=== PATIENT | female | born 1985 | race Caucasian/White ===

== ENCOUNTER 2021-10-01 10:41 | Inpatient (IN) | payer OTHER ==
[~2021-10-01] VITALS: Ht 167.6 cm; Wt 129.5 kg
[2021-10-01 11:20] LABS: COVID AG,FIA SOURCE NASOPHARYNGEAL
[2021-10-01 11:21] LABS: BASOPHILS % (AUTO) 0.3 % (0.0-2.0); EOSINOPHILS % (AUTO) 0 % (1.0-6.0); HEMATOCRIT 39.8 % (36-46); HEMOGLOBIN 13.1 g/dL (12.0-16.0); LYMPHOCYTES # (AUTO) 2.9 K/uL (1.0-4.8); LYMPHOCYTES % (AUTO) 26.7 % (22.0-44.0); MEAN CORPUSCULAR HEMOGLOBIN 27.8 pg (26.0-34.0); MEAN CORPUSCULAR HGB CONC 32.9 G/dL (31.0-37.0); MEAN CORPUSCULAR VOLUME 84 fL (80-100); MONOCYTES # (AUTO) 0.2 K/uL (0.1-1.0); MONOCYTES % (AUTO) 2.2 % (2.0-9.0); NEUTROPHILS # (AUTO) 7.6 K/uL (1.8-7.7); NEUTROPHILS % (AUTO) 70.8 % (40.0-70.0); PLATELET COUNT (AUTO) 267 K/uL (150-450); RED BLOOD CELL COUNT(AUTO) 4.72 MIL/uL (4.00-5.20); RED CELL DISTRIBUTION WIDTH 16.7 % (11.5-14.5)
[2021-10-01 11:37] LABS: ANION GAP 14 mmol/L (8-16); CALCIUM, TOTAL 7.9 mg/dL (8.8-10.5); CARBON DIOXIDE 25 mmol/L (22-29); CHLORIDE 108 mmol/L (98-107); CREATININE 0.63 mg/dL (0.60-1.30); GLOMERULAR FILTR. RATE CALC > 60 mL/min (>60); GLUCOSE,RANDOM 86 mg/dL (70-110); POTASSIUM 3.1 mmol/L (3.5-5.1); SODIUM SERUM 147 mmol/L (136-145); UREA NITROGEN, BLOOD 9 mg/dL (7-18)
[2021-10-01 11:56] LABS: GLUCOMETER DEV NAME(LOC) ERT.5; GLUCOSE,POINT OF CARE 80 MG/DL (70-110)
[2021-10-01 12:00] LABS: ALANINE AMINOTRANSFERASE 21 U/L (12-78); ALBUMIN 3.4 g/dL (3.4-5.0); ALKALINE PHOSPHATASE 88 U/L (46-116); ASPARTATE AMINOTRANSFERASE 27 U/L (15-37); BILIRUBIN,TOTAL 0.4 mg/dL (0.1-1.0); HCG,QUANTITATIVE < 1 mIU/mL (0-6); TOTAL PROTEIN, SERUM 7.8 g/dL (6.4-8.2)
[2021-10-01 12:22] LABS: AMPHET/METH SCREEN,URINE NEGATIVE (NEGATIVE); BARBITURATE SCREEN, URINE NEGATIVE (NEGATIVE); BENZODIAZEPINES SCREEN,URINE NEGATIVE (NEGATIVE); CANNABINOID SCREEN,URINE NEGATIVE (NEGATIVE); COCAINE SCREEN,URINE NEGATIVE (NEGATIVE); METHADONE SCREEN, URINE NEGATIVE (NEGATIVE); OPIATE SCREEN,URINE NEGATIVE (NEGATIVE)
[2021-10-01 12:24] LABS: PHENCYCLIDINE SCREEN,URINE NEGATIVE (NEGATIVE)
[2021-10-01] MEDS ORDERED: POTASSIUM CHLORIDE 20 MEQ ER TABLET PO ONE (13:45)
[2021-10-01] MEDS ORDERED: MAGNESIUM HYDROXIDE SUSPENSION 30 ML UDCUP PO PRN (14:45)
[2021-10-01] MEDS ORDERED: BISACODYL 10 MG RECTAL RECTAL SUPPOSITORY PR PRN (14:45)
[2021-10-01] MEDS ORDERED: MORPHINE SULFATE 2 MG/ML SYRINGE IVP PRN (14:45)
[2021-10-01] MEDS ORDERED: LORazepam 2 MG/ML VIAL IVP PRN (14:45)
[2021-10-01] MEDS ORDERED: HYDROCODONE/ACETAMINOPHEN 5-325 MG TABLET PO PRN (14:45)
[2021-10-01] MEDS ORDERED: MAGNESIUM SULFATE 2 GM, MVI, ADULT NO.1 WITH VIT K 10 ML, THIAMINE 100 MG, FOLIC ACID 1... IV ONE ×5 (14:45)
[2021-10-01] MEDS: HEPARIN SODIUM,PORCINE 5,000 UNITS/ML VIAL SQ SCH (15:40)
[2021-10-01 20:15] VITALS: BP 123/67
[2021-10-01] MEDS: DOCUSATE SODIUM 100 MG CAPSULE PO SCH (20:18)
[2021-10-01 23:45] VITALS: BP 133/62
[2021-10-02] MEDS: HEPARIN SODIUM,PORCINE 5,000 UNITS/ML VIAL SQ SCH ×4 (00:57→23:42)
[2021-10-02] MEDS: ONDANSETRON HCL 4 MG/2 ML VIAL IVP PRN ×2 (00:57→05:54)
[2021-10-02 03:30] VITALS: BP 133/95
[2021-10-02] MEDS: ACETAMINOPHEN 325 MG TABLET PO PRN (05:53)
[2021-10-02 06:32] LABS: BASOPHILS % (AUTO) 0.3 % (0.0-2.0); EOSINOPHILS % (AUTO) 0.1 % (1.0-6.0); HEMATOCRIT 35.4 % (36-46); HEMOGLOBIN 11.9 g/dL (12.0-16.0); LYMPHOCYTES # (AUTO) 0.7 K/uL (1.0-4.8); LYMPHOCYTES % (AUTO) 7.9 % (22.0-44.0); MEAN CORPUSCULAR HGB CONC 33.7 G/dL (31.0-37.0); MEAN CORPUSCULAR VOLUME 83 fL (80-100); MONOCYTES # (AUTO) 0.2 K/uL (0.1-1.0); MONOCYTES % (AUTO) 2.1 % (2.0-9.0); NEUTROPHILS # (AUTO) 7.9 K/uL (1.8-7.7); PLATELET COUNT (AUTO) 203 K/uL (150-450); RED BLOOD CELL COUNT(AUTO) 4.25 MIL/uL (4.00-5.20); RED CELL DISTRIBUTION WIDTH 16.8 % (11.5-14.5)
[2021-10-02 06:33] LABS: NEUTROPHILS % (AUTO) 89.6 % (40.0-70.0)
[2021-10-02 06:42] LABS: ANION GAP 12 mmol/L (8-16); CALCIUM, TOTAL 8.1 mg/dL (8.8-10.5); CARBON DIOXIDE 26 mmol/L (22-29); CHLORIDE 102 mmol/L (98-107); CREATININE 0.51 mg/dL (0.60-1.30); GLUCOSE,RANDOM 105 mg/dL (70-110); POTASSIUM 3.5 mmol/L (3.5-5.1); SODIUM SERUM 140 mmol/L (136-145); UREA NITROGEN, BLOOD 4 mg/dL (7-18)
[2021-10-02 06:45] LABS: GLOMERULAR FILTR. RATE CALC > 60 mL/min (>60)
[2021-10-02 07:23] VITALS: BP 128/84
[2021-10-02] MEDS: DOCUSATE SODIUM 100 MG CAPSULE PO SCH ×2 (09:15→21:00)
[2021-10-02] MEDS: PANTOPRAZOLE SODIUM 40 MG DR TABLET PO SCH (09:15)
[2021-10-02] MEDS ORDERED: PROZ20 PO (12:18)
[2021-10-02] MEDS ORDERED: LEVE500T8 PO (12:18)
[2021-10-02] MEDS ORDERED: CHLO5CAP4 PO (12:18)
[2021-10-02 15:03] VITALS: BP 124/78
[2021-10-02] MEDS: ACAMPROSATE CALCIUM 333 MG DR TABLET PO SCH ×2 (16:53→21:07)
[2021-10-02 20:21] VITALS: BP 141/59
[2021-10-02] MEDS: LevETIRAcetam 500 MG TABLET PO SCH (21:07)
[2021-10-02] MEDS: FLUoxetine HCL 20 MG CAPSULE PO SCH (21:07)
[2021-10-02] MEDS: MELATONIN 5 MG TABLET PO SCH (21:07)
[2021-10-03 04:48] VITALS: BP 135/80
[2021-10-03 07:31] VITALS: BP 119/72
[2021-10-03] MEDS: HEPARIN SODIUM,PORCINE 5,000 UNITS/ML VIAL SQ SCH ×3 (09:51→23:04)
[2021-10-03] MEDS: OMEGA-3/DHA/EPA/FISH OIL 1,000 MG CAPSULE PO SCH (09:54)
[2021-10-03] MEDS: FLUoxetine HCL 20 MG CAPSULE PO SCH ×2 (09:54→20:07)
[2021-10-03] MEDS: LevETIRAcetam 500 MG TABLET PO SCH ×2 (09:55→20:07)
[2021-10-03] MEDS: ACAMPROSATE CALCIUM 333 MG DR TABLET PO SCH ×3 (09:55→20:07)
[2021-10-03] MEDS: PANTOPRAZOLE SODIUM 40 MG DR TABLET PO SCH (09:55)
[2021-10-03] MEDS: DOCUSATE SODIUM 100 MG CAPSULE PO SCH ×2 (09:55→20:07)
[2021-10-03 15:05] VITALS: BP 124/82
[2021-10-03 19:22] VITALS: BP 123/76
[2021-10-03] MEDS: MELATONIN 5 MG TABLET PO SCH (21:16)
[2021-10-03] MEDS: ZOLPIDEM TARTRATE 5 MG TABLET PO PRN (23:02)
[2021-10-04 05:28] VITALS: BP 120/67
[2021-10-04 07:22] VITALS: BP 124/68
[2021-10-04] MEDS: ACAMPROSATE CALCIUM 333 MG DR TABLET PO SCH ×3 (08:14→21:00)
[2021-10-04] MEDS: HEPARIN SODIUM,PORCINE 5,000 UNITS/ML VIAL SQ SCH ×3 (08:14→22:23)
[2021-10-04] MEDS: OMEGA-3/DHA/EPA/FISH OIL 1,000 MG CAPSULE PO SCH (08:15)
[2021-10-04] MEDS: DOCUSATE SODIUM 100 MG CAPSULE PO SCH ×2 (08:15→20:31)
[2021-10-04] MEDS: PANTOPRAZOLE SODIUM 40 MG DR TABLET PO SCH (08:18)
[2021-10-04] MEDS: LevETIRAcetam 500 MG TABLET PO SCH ×2 (08:18→20:31)
[2021-10-04] MEDS: FLUoxetine HCL 20 MG CAPSULE PO SCH ×2 (08:19→20:31)
[2021-10-04 15:05] VITALS: BP 130/72
[2021-10-04 20:15] VITALS: BP 129/84
[2021-10-04] MEDS: MELATONIN 5 MG TABLET PO SCH (20:31)
[2021-10-04] MEDS: ACETAMINOPHEN 325 MG TABLET PO PRN (20:33)
[2021-10-04] MEDS: ZOLPIDEM TARTRATE 5 MG TABLET PO PRN (22:18)
[2021-10-05 06:00] VITALS: BP 124/73
[2021-10-05] MEDS: OMEGA-3/DHA/EPA/FISH OIL 1,000 MG CAPSULE PO SCH (08:10)
[2021-10-05] MEDS: FLUoxetine HCL 20 MG CAPSULE PO SCH ×2 (08:10→20:21)
[2021-10-05] MEDS: ACAMPROSATE CALCIUM 333 MG DR TABLET PO SCH ×3 (08:10→20:19)
[2021-10-05] MEDS: LevETIRAcetam 500 MG TABLET PO SCH ×2 (08:11→20:18)
[2021-10-05] MEDS: DOCUSATE SODIUM 100 MG CAPSULE PO SCH ×2 (08:11→20:21)
[2021-10-05] MEDS: HEPARIN SODIUM,PORCINE 5,000 UNITS/ML VIAL SQ SCH ×3 (08:11→23:37)
[2021-10-05] MEDS: PANTOPRAZOLE SODIUM 40 MG DR TABLET PO SCH (08:11)
[2021-10-05 08:29] VITALS: BP 122/73
[2021-10-05 16:51] VITALS: BP 126/75
[2021-10-05 19:53] VITALS: BP 130/73
[2021-10-05] MEDS: MELATONIN 5 MG TABLET PO SCH (21:54)
[2021-10-05] MEDS: ZOLPIDEM TARTRATE 5 MG TABLET PO PRN (23:40)
[2021-10-06 04:13] VITALS: BP 111/63
[2021-10-06] MEDS: LevETIRAcetam 500 MG TABLET PO SCH ×2 (08:26→20:37)
[2021-10-06] MEDS: ACAMPROSATE CALCIUM 333 MG DR TABLET PO SCH ×3 (08:26→20:37)
[2021-10-06] MEDS: DOCUSATE SODIUM 100 MG CAPSULE PO SCH ×2 (08:26→20:37)
[2021-10-06] MEDS: HEPARIN SODIUM,PORCINE 5,000 UNITS/ML VIAL SQ SCH ×3 (08:27→23:03)
[2021-10-06] MEDS: FLUoxetine HCL 20 MG CAPSULE PO SCH ×2 (08:27→20:37)
[2021-10-06] MEDS: OMEGA-3/DHA/EPA/FISH OIL 1,000 MG CAPSULE PO SCH (08:27)
[2021-10-06] MEDS: PANTOPRAZOLE SODIUM 40 MG DR TABLET PO SCH (08:27)
[2021-10-06 15:53] VITALS: BP 117/66
[2021-10-06 19:29] VITALS: BP 131/73
[2021-10-06] MEDS: MELATONIN 5 MG TABLET PO SCH (22:28)
[2021-10-06] MEDS: ZOLPIDEM TARTRATE 5 MG TABLET PO PRN (23:50)
[2021-10-07 04:26] VITALS: BP 102/54
[2021-10-07 08:24] VITALS: BP 111/70
[2021-10-07] MEDS: OMEGA-3/DHA/EPA/FISH OIL 1,000 MG CAPSULE PO SCH (08:49)
[2021-10-07] MEDS: LevETIRAcetam 500 MG TABLET PO SCH ×2 (08:49→20:26)
[2021-10-07] MEDS: HEPARIN SODIUM,PORCINE 5,000 UNITS/ML VIAL SQ SCH ×3 (08:49→22:52)
[2021-10-07] MEDS: FLUoxetine HCL 20 MG CAPSULE PO SCH ×2 (08:49→20:26)
[2021-10-07] MEDS: ACAMPROSATE CALCIUM 333 MG DR TABLET PO SCH ×3 (08:49→20:26)
[2021-10-07] MEDS: DOCUSATE SODIUM 100 MG CAPSULE PO SCH ×2 (08:49→20:26)
[2021-10-07] MEDS: PANTOPRAZOLE SODIUM 40 MG DR TABLET PO SCH (08:49)
[2021-10-07 16:08] VITALS: BP 117/64
[2021-10-07 20:01] VITALS: BP 127/76
[2021-10-07] MEDS: MELATONIN 5 MG TABLET PO SCH (20:26)
[2021-10-07] MEDS: ZOLPIDEM TARTRATE 5 MG TABLET PO PRN (22:52)
[2021-10-08 04:53] VITALS: BP 101/60
[2021-10-08 08:07] VITALS: BP 107/50
[2021-10-08] MEDS: OMEGA-3/DHA/EPA/FISH OIL 1,000 MG CAPSULE PO SCH (08:09)
[2021-10-08] MEDS: HEPARIN SODIUM,PORCINE 5,000 UNITS/ML VIAL SQ SCH ×3 (08:09→23:50)
[2021-10-08] MEDS: DOCUSATE SODIUM 100 MG CAPSULE PO SCH ×2 (08:09→20:03)
[2021-10-08] MEDS: ACAMPROSATE CALCIUM 333 MG DR TABLET PO SCH ×3 (08:09→20:03)
[2021-10-08] MEDS: PANTOPRAZOLE SODIUM 40 MG DR TABLET PO SCH (08:09)
[2021-10-08] MEDS: LevETIRAcetam 500 MG TABLET PO SCH ×2 (08:09→20:03)
[2021-10-08] MEDS: FLUoxetine HCL 20 MG CAPSULE PO SCH ×2 (08:09→20:03)
[2021-10-08 15:42] VITALS: BP 92/57
[2021-10-08 19:58] VITALS: BP 126/78
[2021-10-08] MEDS: MELATONIN 5 MG TABLET PO SCH (20:03)
[2021-10-08] MEDS: ZOLPIDEM TARTRATE 5 MG TABLET PO PRN (22:23)
[2021-10-09 04:32] VITALS: BP 110/63
[2021-10-09 08:01] VITALS: BP 100/66
[2021-10-09] MEDS: LevETIRAcetam 500 MG TABLET PO SCH ×2 (08:26→20:05)
[2021-10-09] MEDS: DOCUSATE SODIUM 100 MG CAPSULE PO SCH ×2 (08:26→20:05)
[2021-10-09] MEDS: PANTOPRAZOLE SODIUM 40 MG DR TABLET PO SCH (08:26)
[2021-10-09] MEDS: HEPARIN SODIUM,PORCINE 5,000 UNITS/ML VIAL SQ SCH ×3 (08:26→23:08)
[2021-10-09] MEDS: ACAMPROSATE CALCIUM 333 MG DR TABLET PO SCH ×3 (08:27→20:05)
[2021-10-09] MEDS: OMEGA-3/DHA/EPA/FISH OIL 1,000 MG CAPSULE PO SCH (08:27)
[2021-10-09] MEDS: FLUoxetine HCL 20 MG CAPSULE PO SCH ×2 (08:27→20:05)
[2021-10-09 15:30] VITALS: BP 114/67
[2021-10-09 20:04] VITALS: BP 104/69
[2021-10-09] MEDS: MELATONIN 5 MG TABLET PO SCH (20:05)
[2021-10-09] MEDS: ZOLPIDEM TARTRATE 5 MG TABLET PO PRN (23:08)
[2021-10-10 04:31] VITALS: BP 105/61
[2021-10-10 04:34] VITALS: BP 142/99
[2021-10-10 08:00] VITALS: BP 97/53
[2021-10-10] MEDS: LevETIRAcetam 500 MG TABLET PO SCH ×2 (09:34→20:57)
[2021-10-10] MEDS: ACAMPROSATE CALCIUM 333 MG DR TABLET PO SCH ×3 (09:34→20:57)
[2021-10-10] MEDS: OMEGA-3/DHA/EPA/FISH OIL 1,000 MG CAPSULE PO SCH (09:34)
[2021-10-10] MEDS: PANTOPRAZOLE SODIUM 40 MG DR TABLET PO SCH (09:34)
[2021-10-10] MEDS: DOCUSATE SODIUM 100 MG CAPSULE PO SCH ×2 (09:34→20:57)
[2021-10-10] MEDS: FLUoxetine HCL 20 MG CAPSULE PO SCH ×2 (09:34→20:57)
[2021-10-10] MEDS: HEPARIN SODIUM,PORCINE 5,000 UNITS/ML VIAL SQ SCH ×3 (09:35→23:23)
[2021-10-10 09:55] VITALS: BP 168/73
[2021-10-10 16:00] VITALS: BP 128/52
[2021-10-10 20:12] VITALS: BP 122/60
[2021-10-10] MEDS: MELATONIN 5 MG TABLET PO SCH (20:57)
[2021-10-11 03:57] VITALS: BP 108/56
[2021-10-11] MEDS: OMEGA-3/DHA/EPA/FISH OIL 1,000 MG CAPSULE PO SCH (07:57)
[2021-10-11] MEDS: PANTOPRAZOLE SODIUM 40 MG DR TABLET PO SCH (07:57)
[2021-10-11] MEDS: DOCUSATE SODIUM 100 MG CAPSULE PO SCH (07:57)
[2021-10-11] MEDS: ACAMPROSATE CALCIUM 333 MG DR TABLET PO SCH (07:57)
[2021-10-11] MEDS: FLUoxetine HCL 20 MG CAPSULE PO SCH (07:57)
[2021-10-11] MEDS: LevETIRAcetam 500 MG TABLET PO SCH (07:57)
[2021-10-11] MEDS: HEPARIN SODIUM,PORCINE 5,000 UNITS/ML VIAL SQ SCH (07:57)
[2021-10-11 08:00] VITALS: BP 90/56
== END 2021-10-11 09:44 | disposition home or self-care (01) | DRG 426 ==
LOC: EMS 10:41 → 6S 14:35
PROVIDERS: ADMIT Internal Medicine; ATTEND Internal Medicine
DX: E87.1 Hypo-osmolality and hyponatremia (principal); G92.9 Unspecified toxic encephalopathy; R45.851 Suicidal ideations; F25.1 Schizoaffective disorder, depressive type; F10.129 Alcohol abuse with intoxication, unspecified; T51.0X1A Toxic effect of ethanol, accidental (unintentional), initial encounter; F99 Mental disorder, not otherwise specified; Y90.9 Presence of alcohol in blood, level not specified; Z20.822 Contact with and (suspected) exposure to COVID-19; Z86.73 Personal history of transient ischemic attack (TIA), and cerebral infarction without residual deficits; Y92.89 Other specified places as the place of occurrence of the external cause
CPT/HCPCS: 80048; 80053; 82962; 84702; 85025; 99285; G0480; J1644; J2060; J2405; J3411; J3475; J3490; Q9967